=== PATIENT | male | born 1960 | race Caucasian/White ===

== ENCOUNTER 2019-04-22 00:28 | Observation (INO) | payer BC, SELFPAY ==
[2019-04-22] VITALS (9 sets, daily range): BP systolic 140–149; BP diastolic 77–100; PULSE 60–74; RESP 15–17; TEMP 36.2–36.6; O2SAT 95–99; BMI 27.3; BMI 27.4
--- NOTE | 2019-04-22 00:35 | HP.PCM_ITS ---
Problem List (1) TIA (transient ischemic attack) Status: Acute (2) HTN (hypertension) Status: Chronic History of Present Illness Date of Admission: 04/22/19 Chief Complaint: Blurry vision The patient is a 58 year old M with a significant history of MTHFR mutation; and hypertension who presented to [facility] ED with a blurry vision of his left eye that lasted for about 20 minutes. His symptoms started at 12:30 PM on the same day of presentation at [facility]. After the resolution of his blurry vision he also had numbness of the fingers of his left hand that lasted for about 10 minutes. And then he developed numbness of his lip and his tongue that also lasted for few minutes. Patient denies any dysphagia or focal weakness. CT brain at outside hospital was unremarkable; and NIH was 0 at outside hospital. This is his fifth episode of similar symptoms with the first episode beginning in August 2015. In August 2015 he had an unremarkable work-up that included a carotid ultrasound and CT. The The last time he had these symptoms prior to this presentation was on January 15, 2019. Emergency department doctor at [facility] discussed the case with a neurologist who felt that patient should be admitted for further work-up. Because of insurance issues patient ended up at our hospital. Past Medical History Past Medical History (Chronic Problems): Chronic Problems HTN (hypertension) (Chronic) Allergies No Known Allergies Allergy (Verified 04/22/19 00:17) Home Medications: Ambulatory Orders Medication Instructions Recorded Aspirin [Aspir 81] 81 mg PO LUNCH 04/22/19 Folic Acid 2 mg PO DAILY@0800 04/22/19 Lisinopril [Zestril] 20 mg PO LUNCH 04/22/19 Naproxen Sodium [Aleve] 220 mg PO DAILY 04/22/19 Pyridoxine HCl (Vitamin B6) 100 mg PO DAILY 04/22/19 [Vitamin B-6] Saw [place] 160 mg PO DAILY 04/22/19 Vit A/Vit C/Vit E/Zinc/Copper 1 tab PO DAILY 04/22/19 [Preservision Areds Tablet] Surgical History: total hip arthroplasty - Bilateral, - - Carpal tunnel surgery Lives: Spouse/ Significant Other Smoking Status: Never smoker Alcohol: Occasional - *Family History Maternal History Items: Cancer, Diabetes Paternal History Items: Heart Disease, - - MTHFR Disorder Review of Systems Constitutional: Denies: Chills, Fever, Weight Change HEENT: Denies: Head Aches, Sinus Congestion, Sinus Drainage Cardiovascular: Denies: Chest Pain, Palpitations Respiratory: Denies: Cough, Shortness of breath at rest, Sputum production Gastrointestinal: Denies: Abdominal Pain, Nausea, Vomiting Genitourinary: Denies: Dysuria Musculoskeletal: Denies: Joint Pain, Joint Tenderness Skin: Denies: Rash, Wounds Neurological: Reports: Blurred vision, Numbness. Denies: Focal weakness, Tingling Psychiatric: Denies: Anxiety, Depression, Homicidal Ideations, Suicidal Ideations Hematologic/ Lymphatic: Denies: Easy Bruising, Easy Bleeding VTE Information - Inpt Only VTE Present on Admission: No VTE Mechan Device Prophylaxis: None VTE Pharm Prophylaxis ordered?: Yes Patient Problems: Active and Suspected Problems TIA (transient ischemic attack) (Acute) - Physical Exam Vitals/I&O's: Vital Signs Temp Pulse Resp BP Pulse Ox 97.2 F L 68 17 149/93 H 98 04/22/19 00:05 04/22/19 00:05 04/22/19 00:05 04/22/19 00:05 04/22/19 00:05 Oxygen Delivery Method Room Air Weight: 89 kg Body Mass Index (BMI) 27.3 General: Alert, Oriented x3, Cooperative HEENT: Atraumatic, PERRLA, EOMI, Normocephalic Neck: Supple, No JVD, Negative Carotid Bruits Lungs: Clear to auscultation, Normal air movement, No rhonchi, No wheeze, No rales Cardiovascular: Regular rate, Normal S1, Normal S2, No murmurs Abdomen: Bowel Sounds Present, Soft, Non Tender Extremities: No edema, Capillary Refill Less than 3 Seconds Skin: No rashes, No breakdown Musculoskeletal: No Tenderness to Palpation of Joints or Extremities Neurological: Cranial nerves II-XII grossly intact, Motor Exam 5/5 strength throughout, Muscle tone normal, Coordination normal Psych/Mental Status: Normal Affect, Appropriate Current Medications Influenza Virus Vaccine Quadrival (Flucelvax /Fluzone [id number]) 0.5 ml IM .ONCE ONE Stop: 04/22/19 00:31 Sodium Chloride () 10 - 40 ml IV UD PRN PRN Reason: SALINE FLUSH Assessment/Plan All Active Problems TIA (transient ischemic attack) (Acute) The patient is a 58 year old M with a significant history of MTHFR mutation; and hypertension who presented to [facility] ED with a transient blurry vision of his left eye; transient numbness of fingers of left hand; and transient numbness of upper lip and tongue consistent with likely TIA. Probable TIA NINDS NIH Scale was 0 CT of the head from outside hospital was -Check Hba1c, Lipid level Physical therapy, occupational therapy to work with patient. N.p.o. until bedside swallow eval. Daily aspirin continued. High intensity statin ordered Permissive hypertension. Control blood pressure with labetalol for systolic blood pressure of more than 220 or diastolic blood pressure of more than 120. -Permissive HTN for 24 hrs, intermediate accountant goal BP < 120/80 mmHg and goal Hba1c < 7% MRI of brain ordered; CT of head and neck per stroke protocol ordered. EKG from outside hospital was unremarkable except a peak T waves in anterior leads. Check troponin. Blood glucose from outside hospital was not low.. Echocardiogram ordered. Hypertension On presentation his blood pressure was not within goal. However will hold home lisinopril and institute permissive hypertension as above. DVT prophylaxis Subcutaneous Lovenox. Code Visit OBSV E&M: 38908 Initial observation care L2
--- NOTE | 2019-04-22 00:45 | MRI_ITS ---
STUDY: MRI BRAIN WITHOUT CONTRAST REASON FOR EXAM: Male, 58 years old. tia, blurred vision, numbness left hand, facial numbness TECHNIQUE: Standardized multiplanar fat and water weighted pulse sequences were obtained. COMPARISON: None. FINDINGS: Normal size of the ventricles and extra-axial spaces for the patient''s age. Normal white matter tracts of the supratentorial brain. There is no evidence for recent intracranial ischemia or other cause of cytotoxic edema on diffusion weighted imaging (DWI). Normal T2* images of the brain without demonstrated susceptibility artifact. There is no demonstrated hemosiderin stain. Normal bilateral basal ganglia. Normal thalami. There is no extra-axial fluid accumulation. Normal flow voids within the major intracranial circulation suggesting patency by spin echo criteria. Normal sella turcica, pituitary gland, infundibular stalk, optic chiasm and hypothalamus. Normal tectal plate and pineal gland. Normal midbrain, kyle and medulla. Normal cerebellum. Normal basal cisterns. Normal bilateral temporal bones. Normal bilateral internal auditory canals. No demonstrated orbital abnormality, within the constraints of a routine brain study. Normal visualized paranasal sinuses. Normal calvarium and skull base. Normal visualized soft tissue structures. Normal visualized upper cervical spine. MRI/Brain without Contrast IMPRESSION: Normal unenhanced MRI of the brain. Electronically Signed: Ra Albarran MD at 10:27 EST Tel , Service support ,
--- NOTE | 2019-04-22 00:45 | CT_ITS ---
STUDY: CTA HEAD AND NECK WITH CONTRAST REASON FOR EXAM: Male, 58 years old. Transient ischemic attack with blurred left vision and left hand numbness. RADIATION DOSAGE (If Supplied By Facility): CTDIvol = ( 35.11 ) mGy, DLP = ( 1622.54 ) mGycm TECHNIQUE: CT angiography was performed with a multi-detector CT scanner. Data acquisition was obtained from the skull base through the vertex following intravenous administration of IV 100mL Isovue-370. MIP images were reconstructed from the axial data set. Post-processing of the angiographic images was performed, with multiplanar reformation and 3D reconstruction. Individualized dose optimization techniques were used for this CT. COMPARISON: No relevant priors. FINDINGS: Normal bilateral petrous carotid arteries. Normal right cavernous carotid artery with a normal supraclinoid bifurcation. Normal left cavernous carotid artery with a normal supraclinoid bifurcation. Normal right A1 segments of the anterior cerebral artery. Normal left A1 segments of the anterior cerebral artery. Normal intact anterior communicating artery (ACOM). Normal bilateral A2 segments of the anterior cerebral arteries. Normal right M1 and M2 segments of the middle cerebral arteries, with a normal M1 bifurcation. Normal left M1 and M2 segments of the middle cerebral arteries, with a normal M1 bifurcation. Normal right posterior communicating artery (PCOM). Normal left posterior communicating artery (PCOM). Normal bilateral vertebral arteries. Normal basilar artery with a normal basilar bifurcation. The visualized bilateral superior cerebellar (SCA) arteries are normal. Normal bilateral P1, P2 and visualized P3 segments of the posterior cerebral arteries. There is no demonstrated aneurysm of the [place] of [place]. There is no demonstrated abnormality of the visualized brain. AORTIC ARCH: Normal visualized aortic arch. Normal origins of the brachiocephalic, left common carotid, and left subclavian arteries. RIGHT CAROTID ARTERIES: Normal right common carotid artery (CCA). Normal right common carotid bulb. Normal origin of the right internal carotid (ICA) artery without a hemodynamically significant stenosis. Normal visualized cervical portion of the right internal carotid artery. Normal origin of the right external carotid artery (ECA). LEFT CAROTID ARTERIES: Normal left common carotid artery (CCA). Normal left common carotid bulb. Normal origin of the left internal carotid (ICA) artery without a hemodynamically significant stenosis. Normal visualized cervical portion of the left internal carotid artery. Normal origin of the left external carotid artery (ECA). VERTEBRAL ARTERIES: Normal bilateral vertebral arteries. CT/CTA Head AND Neck W/ Contrast IMPRESSION: Normal CTA Head and neck with contrast. Electronically Signed: Aden Dailey MD at 2:57 EST Tel , Service support ,
--- NOTE | 2019-04-22 00:45 | ECHOCS_ITS ---
Reason For Study: TIA/CVA Procedure This was a 2D Doppler, Color Flow transthoracic echocardiogram. Contrast injection was performed. Exam performed portable in patient room. Left Ventricle Normal LV size. Left ventricular systolic function is normal. The estimated ejection fraction is 60 %. Stage 1 diastolic dysfunction. No regional wall motion abnormalities noted. Right Ventricle Normal RV size. Normal systolic function. Atria Normal left atrium. Normal right atrium. Bubble contrast study negative for right to left interatrial shunt. Mitral Valve Bileaflet diffuse mitral valve thickening. There is mild mitral annular calcification. Mild (1+) eccentric mitral valve insufficiency. Tricuspid Valve Normal tricuspid valve. Mild (1+) tricuspid valve insufficiency. Pulmonary artery systolic pressure is 35 mmHg. Aortic Valve The aortic valve is not well visualized. Pulmonic Valve The pulmonic valve is not well visualized. Great Vessels Normal aortic root. The pulmonary artery is normal size. Normal inferior vena cava. Pericardium/Pleural No pericardial effusion. Medication Diluted definity 2ml given slow IV push to enhance endocardial definition. Performed a rapid injection of agitated mix of 9 cc saline and 1cc air to assess for atrial septal defect. MMode/2D Measurements & Calculations LVIDd: 4.4 cm IVSd: 1.5 cm LA dimension: 3.7 cm LVIDs: 2.5 cm LVPWd: 1.2 cm RVDd: 3.0 cm FS: 43.2 % LAV(MOD-bp): 56.5 ml LA A4 area: 19.0 cm2 RA A4 area: 16.1 cm2 LAV(MOD-bp) Indexed: 27.4 ml/m2 LAV(MOD-sp2): 52.4 ml LAV(MOD-sp4): 56.4 ml Time Measurements MV dec time: 0.29 sec Doppler Measurements & Calculations MV E max nayan: 70.0 cm/sec Lat Peak E' Nayan: 10.6 cm/sec Med Peak E' Nayan: 8.0 cm/sec MV A max nayan: 97.7 cm/sec E/E' lat: 6.6 E/E' med: 8.7 MV E/A: 0.72 MV V2 max: 110.7 cm/sec MV P1/2t max nayan: 79.9 cm/sec Ao V2 max: 102.9 cm/sec MV max P.9 mmHg MV P1/2t: 128.2 msec Ao max P.2 mmHg MV V2 mean: 59.2 cm/sec MV dec slope: 182.6 cm/sec2 MV mean P.6 mmHg MV V2 VTI: 31.0 cm MVA(P1/2t): 1.7 cm2 LV V1 max: 90.5 cm/sec MR max nayan: 507.3 cm/sec PA V2 max: 65.5 cm/sec LV V1 max P.3 mmHg MR max P.9 mmHg MR mean nayan: 407.0 cm/sec MR mean P.9 mmHg MR VTI: 173.8 cm TR max nayan: 279.1 cm/sec TR max P.2 mmHg Interpretation Summary Normal LV size. Left ventricular systolic function is normal. The estimated ejection fraction is 60 %. Stage 1 diastolic dysfunction. Bubble contrast study negative for right to left interatrial shunt. Mild (1+) eccentric mitral valve insufficiency. Ordering Physician: Chris Abreu Performed By: Hardeep Dent RCS
[2019-04-22] MEDS: Atorvastatin Calcium 80 MG Tablet PO (01:23)
[2019-04-22] MEDS: 0.9% Saline Lock 10 ML Syringe IV (01:24)
[2019-04-22 01:34] LABS: Absolute Lymphocyte Count 1.75 X10^3/uL (0.83-4.51); Absolute Neutrophil Count 2.8 X10^3/uL (2.0-7.7); Basophil# 0.07 X10^3/uL; Basophil% 1.3 % (0-1); Eosinophil# 0.36 X10^3/uL; Eosinophils% 6.6 % (0-5); Hematocrit 41.5 % (40-54); Hemoglobin 13.7 g/dL (13.0-16.5); Lymphocyte # 1.75 X10^3/ul (4.0); Lymphocyte % 32.1 % (19-41); Mean Corpuscular Hgb 30.5 pg (27.0-32.0); Mean Corpuscular Volume 92.4 fL (80-94); Mean Platelet Vol. 8.7 fl (6.2-12.0); Monocyte# 0.47 X10^3/uL; Monocyte% 8.6 % (0-10); NRBC Flagged by Analyzer 0 % (0-5); Neutrophil # 2.79 X10^3/uL (2.7-7.7); Neutrophil % 51.2 % (47-70); Platelet Count 247 K/mm3 (150-450); RBC Distribution Width SD 40.9 fl (35.1-43.9); Red Blood Count 4.49 M/mm3 (4.6-6.2); White Blood Count 5.5 K/mm3 (4.4-11.0)
[2019-04-22 02:00] LABS: Hemoglobin A1c 5.6 % (4.2-6.3)
[2019-04-22 02:03] LABS: Anion Gap 4 (5-15); BUN 18 mg/dL (7-18); BUN/Creat Ratio 15.9 RATIO (10-20); Calcium,Total 8.6 mg/dL (8.5-10.1); Chloride 111 mmol/L (98-107); Cholesterol 161 mg/dL (200); Creatinine, Serum 1.13 mg/dL (0.70-1.30); EST Glomerular Filtration Rate 70 mL/min (>60); Est Glom Filt Rate - Afr Amer 85 mL/min (>60); Estimated Creatinine Clearance 74.04 ml/min; Glucose 89 mg/dL (74-106); High Density Lipoprotein 60 mg/dL; Sodium Level 141 mmol/L (136-145); Triglycerides 46 mg/dL; Very Low Density Lipoprotein 9 mg/dL (5-40)
[2019-04-22] MEDS: Naproxen 250 MG Tablet PO (07:37)
[2019-04-22] MEDS: Enoxaparin 40 MG/0.4 ML Syringe SC (07:41)
--- NOTE | 2019-04-22 11:25 | PCM.DC ---
- Discharge Diagnoses Current Active Problems: Current Active and Chronic Problems TIA (transient ischemic attack) (Acute) HTN (hypertension) (Chronic) You will use the following diet at home:: Cardiac Your food should be the consistency of: Regular Your liquids should be the consistency of: Regular/Thin Discharge Activity: Return to Normal Activity Allergies/Adverse Reactions: Allergies No Known Allergies Allergy (Verified 04/22/19 00:17) Medications to take at Discharge Aspirin [Aspir 81] 81 mg PO LUNCH 04/22/19 Atorvastatin Calcium [Lipitor] 80 mg PO QHS #30 tab 04/22/19 Folic Acid 2 mg PO DAILY@0800 04/22/19 Lisinopril [Zestril] 20 mg PO LUNCH #0 04/22/19 Naproxen Sodium [Aleve] 220 mg PO DAILY 04/22/19 Pyridoxine HCl (Vitamin B6) [Vitamin B-6] 100 mg PO DAILY 04/22/19 Saw [place] 160 mg PO DAILY 04/22/19 Vit A/Vit C/Vit E/Zinc/Copper [Preservision Areds Tablet] 1 tab PO DAILY 04/22/19 The following prescriptions were given: Atorvastatin Calcium [Lipitor] 80 mg PO QHS #30 tab Transmission Status: Pending to [facility] Primary Care Physician: Care Physician,No Primary [Primary Care Provider] - Please follow up with your Primary Care Physician in: 1-2 weeks Test Results: Test results from this visit will be discussed in further detail at your follow-up appointment, if applicable. Please Follow Up With: [facility] When: 3-4 weeks Proposed Discharge Date: 04/22/19
[2019-04-22] MEDS: Folic Acid 1 MG Tablet 2 MG PO (12:18)
[2019-04-22] MEDS: Aspirin E.C. 81 MG Tablet PO (12:19)
[2019-04-22] MEDS: Pyridoxine HCl 100 MG Tablet PO (12:19)
[2019-04-22] MEDS: Multivitamin (Healthy Eyes) Capsule 1 CAP PO (12:19)
--- NOTE | 2019-04-22 13:25 | CASEMGMT ---
SW completed a PHQ 9 with patient as he may have had a TIA. He scored a 0 which indicates no depression. Marilee LEY MSW
--- NOTE | 2019-04-22 14:12 | PHA.DC.MC ---
Pharmacy Service has performed discharge medication reconciliation and counseling for this patient. The patient's discharge medication list was reviewed for discrepancies and discrepancies were resolved. Home Medications Aspirin [Aspir 81] 81 mg PO LUNCH 04/22/19 Atorvastatin Calcium [Lipitor] 80 mg PO QHS #30 tab 04/22/19 Folic Acid 2 mg PO DAILY@0800 04/22/19 Lisinopril [Zestril] 20 mg PO LUNCH #0 04/22/19 Naproxen Sodium [Aleve] 220 mg PO DAILY 04/22/19 Pyridoxine HCl (Vitamin B6) [Vitamin B-6] 100 mg PO DAILY 04/22/19 Saw [place] 160 mg PO DAILY 04/22/19 Vit A/Vit C/Vit E/Zinc/Copper [Preservision Areds Tablet] 1 tab PO DAILY 04/22/19 The patient was counseled on the following discharge medications and changes in medications for homegoing were reviewed. The Reason for Use, instructions for use, and potential side effects were reviewed for all new medications. 1. LIPITOR The patient's questions regarding all of their medications were answered. The patient was able to verbally demonstrate an understanding of their discharge medications.
--- NOTE | 2019-04-22 14:28 | PCM.DC.SUM ---
<Charlie Torres - Last Filed: 04/22/19 14:28> Discharge Date and Diagnosis Date of Admission: 04/22/19 Date of Discharge: 04/22/19 - Primary Discharge Diagnosis Active and Suspected Problems TIA (transient ischemic attack) (Acute) hx TIA hx Migraine HTN - Secondary Discharge Diagnosis Chronic Problems HTN (hypertension) (Chronic) Hospital Course and Treatment Imaging Results: MRI/Brain without Contrast IMPRESSION: Normal unenhanced MRI of the brain. CT/CTA Head AND Neck W/ Contrast IMPRESSION: Normal CTA Head and neck with contrast. Operations: None Procedures: 2-D Echocardiogram Summary of Care Provided: Hospital Course: The patient is a 58 year old M with pmhx of TIA and HTN who presented to the ER with c/o Left eye blurry vision, and left sided numbness/tinglin in the hand and face. The duration was approximately 20 minutes before it fully resolved spontaneously. He reported this was similar to his prior TIA. He also reported that he has had this happen at home since his last TIA but has not had it checked out. He was admitted for CVA workup. His CTA head and neck were negative. His MRI brain was negative. He had no recurrent symptoms. Echo is pending at this time. His aspirin was continued. Lipitor was started. He was discharged home in stable condition. He will need follow up with his neurologist at [place] in 3-4 weeks, and with his PCP in 1-2 weeks. This patient was seen by Charlie Torres PA-C under the supervision of Dr. Dejesus. [] - Physical Exam Vitals/I&O's: Vital Signs Temp Pulse Resp BP Pulse Ox 97.7 F L 70 16 144/77 H 99 04/22/19 13:34 04/22/19 13:34 04/22/19 13:34 04/22/19 13:34 04/22/19 13:34 Oxygen Delivery Method Room Air Weight: 196 lb 3.382 oz Body Mass Index (BMI) 27.3 Intake and Output for Last 24 Hours 04/20/19 04/21/19 04/22/19 23:59 23:59 23:59 Intake Total 200 / 200 Balance 200 / 200 General: Alert, Oriented x3, Cooperative HEENT: Atraumatic, PERRLA, EOMI, Normocephalic Neck: Supple, No JVD, Negative Carotid Bruits Lungs: Clear to auscultation, Normal air movement Cardiovascular: Regular rate, No murmurs Abdomen: Bowel Sounds Present, Soft, Non Tender Extremities: No edema, Capillary Refill Less than 3 Seconds Skin: No rashes, No breakdown Musculoskeletal: No Tenderness to Palpation of Joints or Extremities Neurological: Cranial nerves II-XII grossly intact Psych/Mental Status: Normal Affect, Appropriate Laboratory Results 04/22/19 01:05: Sodium 141, Potassium 4.0, Chloride 111 H, Carbon Dioxide 26.0, Anion Gap 4 L, BUN 18, Creatinine 1.13, Estim Creat Clear Calc 74.04, Est GFR (MDRD) Af Amer 85, Est GFR (MDRD) Non-Af 70, BUN/Creatinine Ratio 15.9, Glucose 89, Calcium 8.6, Troponin I < 0.015 04/22/19 01:05: WBC 5.5, RBC 4.49 L, Hgb 13.7, Hct 41.5, MCV 92.4, MCH 30.5, MCHC 33.0, RDW Std Deviation 40.9, RDW Coeff of Breanne 12.0, Plt Count 247, MPV 8.7, Immature Gran % (Auto) 0.200, Neut % (Auto) 51.2, Lymph % (Auto) 32.1, [place] % (Auto) 8.6, Eos % (Auto) 6.6 H, Baso % (Auto) 1.3 H, Absolute Neuts (auto) 2.8, Absolute Lymphs (auto) 1.75, Nucleated RBC % 0 04/22/19 01:05: Triglycerides 46, Cholesterol 161, LDL Cholesterol 92, VLDL Cholesterol 9, HDL Cholesterol 60 04/22/19 01:05: Hemoglobin A1c 5.6 Current Medications Aspirin (Ecotrin) 81 mg PO LUNCH COUNTS INCLUDE 234 BEDS AT THE [facility] Last Admin: 04/22/19 12:19 Dose: 81 mg Documented by: Atorvastatin Calcium (Lipitor) 80 mg PO QHS COUNTS INCLUDE 234 BEDS AT THE [facility] Last Admin: 04/22/19 01:23 Dose: 80 mg Documented by: Enoxaparin Sodium (Lovenox) 40 mg SC DAILY COUNTS INCLUDE 234 BEDS AT THE [facility] Last Admin: 04/22/19 07:41 Dose: 40 mg Documented by: Folic Acid (Folic Acid) 2 mg PO DAILY@0800 COUNTS INCLUDE 234 BEDS AT THE [facility] Last Admin: 04/22/19 12:18 Dose: 2 mg Documented by: Glucagon () 1 mg IM .X1 PRN PRN Reason: Hypoglycemia Dextrose (Dextrose 10%-Water) 250 mls @ 999 mls/hr IV .Q16M PRN; Protocol PRN Reason: HYPOGLYCEMIA Labetalol HCl (Trandate) 10 mg IV Q10M PRN PRN Reason: MAINTAIN BP < 220/120 Stop: 04/23/19 00:46 Multivitamins/Minerals (Healthy Eyes (Bkc)) 1 capsule PO DAILY COUNTS INCLUDE 234 BEDS AT THE [facility] Last Admin: 04/22/19 12:19 Dose: 1 capsule Documented by: [facility] Last Admin: 04/22/19 07:37 Dose: 250 mg Documented by: Ondansetron HCl (Zofran) 4 mg IV Q8H PRN PRN PRN Reason: NAUSEA/VOMITING Pyridoxine HCl (Vitamin B-6) 100 mg PO DAILY COUNTS INCLUDE 234 BEDS AT THE [facility] Last Admin: 04/22/19 12:19 Dose: 100 mg Documented by: Sodium Chloride () 10 - 40 ml IV UD PRN PRN Reason: SALINE FLUSH Last Admin: 04/22/19 01:24 Dose: 10 ml Documented by: Discharge Diet: 2000 mg Sodium Diet Discharge Activity: Return to Normal Activity Home Medications: Medications to take at Discharge Aspirin [Aspir 81] 81 mg PO LUNCH 04/22/19 Atorvastatin Calcium [Lipitor] 80 mg PO QHS #30 tab 04/22/19 Folic Acid 2 mg PO DAILY@0800 04/22/19 Lisinopril [Zestril] 20 mg PO LUNCH #0 04/22/19 Naproxen Sodium [Aleve] 220 mg PO DAILY 04/22/19 Pyridoxine HCl (Vitamin B6) [Vitamin B-6] 100 mg PO DAILY 04/22/[address] [place] 160 mg PO DAILY 04/22/19 Vit A/Vit C/Vit E/Zinc/Copper [Preservision Areds Tablet] 1 tab PO DAILY 04/22/19 Following Prescrptions Were Given to Patient: Atorvastatin Calcium [Lipitor] 80 mg PO QHS #30 tab Transmission Status: Received by [facility] Primary Care Physician: Care Physician,No Primary [Primary Care Provider] - Please follow up with your Primary Care Physician in: 1-2 weeks Please Follow Up With: [facility] When: 3-4 weeks Disposition: Home Minutes spent on discharge:: 35 Patient Condition:: Stable Medical Necessity - Tobacco Use Smoking Status: Never smoker Meaningful Use Info Meaningful Use Diagnoses (Choose all that apply): None applicable <Ken Dejesus - Last Filed: 04/23/19 09:10> Discharge Date and Diagnosis - Secondary Discharge Diagnosis Chronic Problems HTN (hypertension) (Chronic) Hospital Course and Treatment Summary of Care Provided: Hospitalist note: Discharge summary above reviewed and I concur with the above discharge treatment plan. Patient was directly admitted from outside hospital for blurry vision on the left eye, left side numbness and tingling on the hand and face and he was admitted for evaluation. He had CT brain without contrast at the outside facility that showed no evidence of acute infarct or hemorrhage. CTA of the head and neck performed and revealed no evidence of hemodynamically significant vascular disease or stenosis, which was normal. After admission, patient symptoms resolved. His routine blood work was unremarkable. EKG revealed no evidence of acute segment changes or cardiac arrhythmias. MRI brain done and showed no evidence of acute infarct or hemorrhage. 2D echocardiogram revealed normal LV size and function, ejection fraction of 60%, stage I diastolic dysfunction and bubble contrast study that was negative for [id number] shunt. Acute stroke ruled out. Patient symptoms attributed to transient ischemic attack. Patient was discharged home on aspirin and statins, continued on his previous home medications without any changes, recommended follow-up with PCP in 1 to 2 weeks, recommended referral to neurology as outpatient. - Physical Exam General: Alert, Oriented x3, Cooperative, No apparent distress. HEENT: Atraumatic, PERRLA, EOMI. Neck: Supple, No JVD, Negative Carotid Bruits, Trachea Midline, Thyroid Normal. Lungs: Clear to auscultation, Normal air movement, No rhonchi, No wheeze, No rales. Cardiovascular: Regular rate, Regular Rhythm, Normal S1, Normal S2, PMI Normal. Abdomen: Bowel Sounds Present, Soft, Non Tender, Non-Distended, No Hepato-splenomegaly. Extremities: No clubbing, No cyanosis, No edema Skin: No rashes, No breakdown Neurological: Cranial nerves are intact, neuro grossly intact Vital Signs are stable. This note was generated with [employer] software. It may contain incorrect words, spelling, and punctuation that were not noted in checking the note before signing. - Physical Exam Vitals/I&O's: Vital Signs Temp Pulse Resp BP Pulse Ox 97.7 F L 74 16 144/77 H 99 04/22/19 13:34 04/22/19 15:00 04/22/19 13:34 04/22/19 13:34 04/22/19 13:34 Oxygen Delivery Method Room Air Weight: 196 lb 3.382 oz Body Mass Index (BMI) 27.3 Intake and Output for Last 24 Hours 04/20/19 04/21/19 04/22/19 23:59 23:59 23:59 Intake Total 200 / 200 Balance 200 / 200 Laboratory Results 04/22/19 01:05: Sodium 141, Potassium 4.0, Chloride 111 H, Carbon Dioxide 26.0, Anion Gap 4 L, BUN 18, Creatinine 1.13, Estim Creat Clear Calc 74.04, Est GFR (MDRD) Af Amer 85, Est GFR (MDRD) Non-Af 70, BUN/Creatinine Ratio 15.9, Glucose 89, Calcium 8.6, Troponin I < 0.015 04/22/19 01:05: WBC 5.5, RBC 4.49 L, Hgb 13.7, Hct 41.5, MCV 92.4, MCH 30.5, MCHC 33.0, RDW Std Deviation 40.9, RDW Coeff of Breanne 12.0, Plt Count 247, MPV 8.7, Immature Gran % (Auto) 0.200, Neut % (Auto) 51.2, Lymph % (Auto) 32.1, [place] % (Auto) 8.6, Eos % (Auto) 6.6 H, Baso % (Auto) 1.3 H, Absolute Neuts (auto) 2.8, Absolute Lymphs (auto) 1.75, Nucleated RBC % 0 04/22/19 01:05: Triglycerides 46, Cholesterol 161, LDL Cholesterol 92, VLDL Cholesterol 9, HDL Cholesterol 60 04/22/19 01:05: Hemoglobin A1c 5.6 Disposition: Home Minutes spent on discharge:: 27 Patient Condition:: Stable Meaningful Use Info Meaningful Use Diagnoses (Choose all that apply): None applicable Code Visit OBSV E&M: 64016 Observation care discharge
== END 2019-04-22 11:26 | disposition home or self-care (01) ==
PROVIDERS: Admitting Provider Hospitalist; Visit Provider Hospitalist
DX: G45.9 Transient cerebral ischemic attack, unspecified (principal); I10 Essential (primary) hypertension; Z23 Encounter for immunization; H53.8 Other visual disturbances; E72.12 Methylenetetrahydrofolate reductase deficiency; I08.1 Rheumatic disorders of both mitral and tricuspid valves; R20.0 Anesthesia of skin; Z79.899 Other long term (current) drug therapy; Z79.82 Long term (current) use of aspirin
CPT/HCPCS: 36415; 70496; 70498; 70551; 80048; 80061; 83036; 84484; 85025; 93306; 94762; 96372; 97161; 97166; 99218; Q9957; Q9967; 90686; A4216; C8929; G0378